=== PATIENT | female | born 1980 | race Two or more races ===

== ENCOUNTER 2021-07-16 13:59 | Emergency (ER) | payer BC ==
[~2021-07-16] VITALS: Ht 167.6 cm; Wt 54.4 kg
--- NOTE | 2021-07-16 15:00 | NUR ---
BIBSELF C/O "Cough/Congestion/sore throat/body aches. Covid positive diagnosed 5d ago". AMBULATORY, PLACED ON BED, CHANGED TO GOWN, AAOX4, NOT IN RESPIRATORY DISTRESS SATURATING AT 100% RA.
--- NOTE | 2021-07-16 15:10 | NUR ---
AT BED SIDE
[2021-07-16] MEDS ORDERED: ACETAMINOPHEN ES 500 MG TABLET PO ONE (15:30)
[2021-07-16] MEDS ORDERED: IV NS 0.9% 1,000 ML BAG IV ONE (15:30)
--- NOTE | 2021-07-16 15:30 | NUR ---
BLOOD DRAWN AND SENT TO LAB
[2021-07-16] MEDS ORDERED: ACETAMINOPHEN ES 500 MG TABLET ONE (15:40)
[2021-07-16 15:48] LABS: BASOPHILS % (AUTO) 0.2 % (0.0-2.0); EOSINOPHILS % (AUTO) 0.5 % (0.0-6.0); HEMATOCRIT 37 % (33-45); HEMOGLOBIN 12.4 g/dL (11.5-14.8); LYMPHOCYTES # (AUTO) 0.7 K/uL (0.8-4.8); LYMPHOCYTES % (AUTO) 11.6 % (20.0-44.0); MEAN CORPUSCULAR HGB CONC 34 g/dl (31.0-36.0); MEAN CORPUSCULAR VOLUME 100 fL (82-100); MONOCYTES # (AUTO) 0.7 K/uL (0.1-1.30); MONOCYTES % (AUTO) 11.4 % (2.0-12.0); NEUTROPHILS # (AUTO) 4.5 K/uL (1.8-8.9); NEUTROPHILS % (AUTO) 76.3 % (43.0-81.0); PLATELET COUNT (AUTO) 126 K/uL (150-450); RED BLOOD CELL COUNT(AUTO) 3.69 MIL/uL (4.0-5.2); WHITE BLOOD COUNT (AUTO) 5.9 K/uL (4.3-11.0)
[2021-07-16 15:57] LABS: CALCIUM, SERUM 8.4 mg/dL (8.5-10.1); CREATININE 0.8 mg/dL (0.6-1.3); POTASSIUM 3.9 mmol/L (3.5-5.1)
--- NOTE | 2021-07-16 16:10 | NUR ---
URINE SAMPLE SENT TO LAB
[2021-07-16 17:05] LABS: BILIRUBIN,URINE NEGATIVE (NEGATIVE); COLOR,URINE YELLOW (YELLOW); LEUKOCYTE ESTERASE ,URINE NEGATIVE (NEGATIVE); NITRITE, URINE NEGATIVE (NEGATIVE); PH,URINE 7.5 (5.0-8.0); PROTEIN,URINE NEGATIVE (NEGATIVE); UGLUCOSE NEGATIVE (NEGATIVE); UROBILINOGEN,URINE >=8.0 EU/dL (0.2)
[2021-07-16 17:15] LABS: BACTERIA,URINE None seen /HPF (None Seen); SQUAMOUS EPITHELIAL CELL,UR 0-2 /HPF (None Seen); WBC,URINE 0-2 /HPF (0-3)
--- NOTE | 2021-07-16 18:00 | NUR ---
X-RAY TECH. AT BED SIDE
[2021-07-16] MEDS ORDERED: BENZ-13 PO (18:34)
[2021-07-16] MEDS ORDERED: ACET-2605 PO (18:34)
--- NOTE | 2021-07-16 18:53 | NUR ---
IV removed. Catheter intact and site benign. Pressure and 4x4 applied to site. No bleeding noted.Patient discharged to home in stable condition. Written and verbal after care instructions given. Patient verbalizes understanding of instruction.
[2021-07-16 19:10] VITALS: BP 130/84
== END 2021-07-16 18:53 | disposition home or self-care (01) ==
LOC: ER 14:02
DX: U07.1 COVID-19 (principal); R05.9 Cough, unspecified; Z79.899 Other long term (current) drug therapy
CPT/HCPCS: 36415; 71045; 80048; 81001; 83605; 84703; 85025; 87040 ×2; 87086; 93005; 96360; 99285; J7030

== ENCOUNTER 2024-09-10 15:57 | Emergency (ER) | payer BC ==
[~2024-09-10] VITALS: Ht 162.6 cm; Wt 54.4 kg
[~2024-09-10 15:57] MED LIST: ACET-2605 PO; BENZ-13 PO
[2024-09-10] MEDS ORDERED: IBUP-1953 PO (18:31)
[2024-09-10 19:06] VITALS: BP 108/68; TEMP 98.1; O2SAT 100
== END 2024-09-10 19:06 | disposition home or self-care (01) ==
LOC: ER 16:01
DX: S92.354A Nondisplaced fracture of fifth metatarsal bone, right foot, initial encounter for closed fracture (principal); M79.671 Pain in right foot; Z79.899 Other long term (current) drug therapy; W18.39XA Other fall on same level, initial encounter; Y93.01 Activity, walking, marching and hiking; Y92.89 Other specified places as the place of occurrence of the external cause; Y99.8 Other external cause status
CPT/HCPCS: 73630-TC